=== PATIENT | female | born 1960 | race Caucasian/White ===

== ENCOUNTER 2017-02-28 06:58 | Inpatient (IN) ==
[2017-02-26 17:39] LABS: Appearance,Urine CLEAR; Bilirubin,Urine NEG (NEG); Color,Urine YELLOW; Glucose,Urine (UA) NEGATIVE (NEG); Leukocyte Esterase,Urine NEG /uL (NEG); Nitrate,Urine NEG (NEG); Protein,Urine NEG (NEG); Specific Gravity,Urine 1.013 (1.000-1.035); Urine Blood NEG mg/dL (<0.03); Urobilinogen,Urine NEG (NEG)
[2017-02-26 17:52] LABS: Basophils # (Auto) 0 K/mcL (0.0-0.3); Basophils % (Auto) 0.4 % (0.0-2.0); Eosinophils # (Auto) 0.2 K/mcL (0.0-0.7); Eosinophils % (Auto) 2.3 % (0.0-7.0); Granulocytes % (Auto) 64.3 % (38.0-78.0); Lymphocytes # (Auto) 2.8 K/mcL (1.5-4.8); Lymphocytes % (Auto) 27.7 % (15.5-49.0); Mean Cell Volume 91.8 fL (80.0-100.0); Mean Corpuscular HGB Conc 33.7 g/dL (31.0-36.0); Mean Corpuscular Hemoglobin 30.9 pg (26.0-34.0); Monocytes # (Auto) 0.5 K/mcL (0.1-0.9); Monocytes % (Auto) 5.3 % (1.0-12.0); Platelet Count 224 K/mcL (140-440); RBC 5.21 M/mcL (4.00-5.20); Red Cell Distribution Width 14.9 % (11.5-14.5)
[2017-02-26 17:53] LABS: Blood Urea Nitrogen 23 mg/dl (6-20)
[2017-02-28] MEDS ORDERED: oxyCODONE 10 MG TAB.ER.12H PO SCH (07:00)
[2017-02-28] MEDS ORDERED: PREGABALIN 75 MG CAPSULE PO SCH (07:00)
[2017-02-28] MEDS ORDERED: CELECOXIB 200 MG CAPSULE PO SCH (07:00)
[2017-02-28] MEDS ORDERED: ceFAZolin 1 GM VIAL IV SCH (07:00)
[2017-02-28] MEDS ORDERED: KETOROLAC 30 MG, ROPIVACAINE HCL/PF 49.5 ML, EPINEPHrine 0.5 MG, 0.9 % SODIUM CHLORIDE ... IJ ONE (08:00)
[2017-02-28] MEDS ORDERED: MIDAZOLAM 5 MG/5 ML VIAL IV ONE (09:50)
[2017-02-28] MEDS ORDERED: DEXAMETHASONE 10 MG/ML VIAL IV ONE (09:50)
[2017-02-28] MEDS ORDERED: LIDOCAINE HCL/PF 100 MG/5 ML SYRINGE IV ONE (09:50)
[2017-02-28] MEDS ORDERED: TRANEXAMIC ACID 1,000 MG/10 ML VIAL IV ONE (09:50)
[2017-02-28] MEDS ORDERED: ROPIVACAINE HCL/PF 20 ML VIAL IJ ONE (09:50)
[2017-02-28] MEDS ORDERED: ONDANSETRON 4 MG/2 ML VIAL IV ONE (09:50)
[2017-02-28] MEDS ORDERED: PROPOFOL 200 MG/20 ML VIAL IV ONE (09:50)
[2017-02-28] MEDS ORDERED: TOBRAMYCIN SULFATE 1.2 GM VIAL TOPICAL ONE (10:21)
[2017-02-28] MEDS ORDERED: VANCOMYCIN 500 MG VIAL TOPICAL ONE (10:21)
[2017-02-28] MEDS ORDERED: BENZOCAINE/MENTHOL 1 LOZENGE PO PRN ×2 (11:23→11:50)
[2017-02-28] MEDS ORDERED: fentaNYL 100 MCG/2 ML VIAL IV PRN (11:23)
[2017-02-28] MEDS ORDERED: diphenhydrAMINE 50 MG/ML VIAL IV PRN (11:23)
[2017-02-28] MEDS ORDERED: METHOCARBAMOL 1,000 MG/10 ML VIAL IV PRN (11:23)
[2017-02-28] MEDS ORDERED: LACTATED RINGERS 250 ML IV PRN (11:23)
[2017-02-28] MEDS ORDERED: MEPERIDINE 25 MG/ML SYRINGE IV PRN (11:23)
[2017-02-28] MEDS ORDERED: ONDANSETRON 4 MG/2 ML VIAL IV PRN (11:23)
[2017-02-28] MEDS ORDERED: FLUMAZENIL 0.1 MG/ML ML IV PRN (11:23)
[2017-02-28] MEDS ORDERED: IPRATROPIUM/ALBUTEROL 3 ML AMPUL.NEB NEB PRN (11:23)
[2017-02-28] MEDS ORDERED: HYDROmorphone 2 MG/ML SYRINGE IV PRN ×2 (11:23→11:50)
[2017-02-28] MEDS ORDERED: NALOXONE HCL 0.4 MG/ML VIAL IV PRN (11:23)
[2017-02-28] MEDS ORDERED: PROMETHAZINE 25 MG/ML VIAL IV PRN (11:23)
[2017-02-28] MEDS ORDERED: LACTATED RINGERS 1,000 ML IV SCH (11:30)
[2017-02-28] MEDS ORDERED: ACETAMINOPHEN 325 MG TABLET PO PRN (11:50)
[2017-02-28] MEDS ORDERED: FLEETS ADULT ENEMA PR PRN (11:50)
[2017-02-28] MEDS ORDERED: TRANEXAMIC ACID 1,000 MG/10 ML VIAL IV SCH (11:50)
[2017-02-28] MEDS ORDERED: POLYETHYLENE GLYCOL 3350 17 GM PACKET PO PRN (11:50)
[2017-02-28] MEDS ORDERED: MAGNESIUM HYDROXIDE 30 ML ORAL.SUSP PO PRN (11:50)
[2017-02-28] MEDS ORDERED: BISACODYL 10 MG SUPP.RECT PR PRN (11:50)
--- NOTE | 2017-02-28 11:50 | Brief Operative Note ---
Date of procedure: 02/28/17 Pre-op diagnosis: Left knee severe postinfectious arthritis Post-op diagnosis: same Procedure: Left robotic assisted total knee arthroplasty Grafts/Implants: Yes ([place] triathlon PS 6 femur, 5 tibia, 13 CS insert, 36 patella) Anesthesia: spinal, GLMA Findings: severe arthritis Complications: none Surgeon: Maurisio Mitchell Build And Release Manager: Jewel Polo Estimated blood loss (cc): 15 Specimens Removed/Pathology: none sent Condition: stable Disposition: PACU
[2017-02-28] MEDS: 0.9 % SODIUM CHLORIDE 10 ML SYRINGE IV SCH ×2 (12:30→20:00)
--- NOTE | 2017-02-28 12:51 | XRay Report ---
CLINICAL INFORMATION: Postop total knee prostheses COMPARISON: None. FINDINGS: Total knee prostheses is anatomically aligned. There appear to be antibiotic beads in the patellofemoral and to a lesser extent the tibiofemoral joint. No osseous abnormalities. Soft tissue swelling seen as expected IMPRESSION: Total knee prostheses is anatomically aligned. Interpreted and Authenticated by: Paul Colmenares 02/28/17
--- NOTE | 2017-02-28 14:29 | Operative Note ---
DATE OF OPERATION: 02/28/2017 PREOPERATIVE DIAGNOSIS: Left knee severe post-infectious osteoarthritis. POSTOPERATIVE DIAGNOSIS: Left knee severe post-infectious osteoarthritis. PROCEDURE PERFORMED: Left robotic-assisted total knee arthroplasty using the [place] triathlon posterior stabilized size 6 femoral component, size 5 tibial base plate, a 13 mm total stabilized tibial insert with a 36 mm patellar button. SURGEON: Maurisio Mitchell M.D. SEED BUYER: Rafael Polo PA-C. ANESTHESIA: Spinal plus general. DRAINS: None. SPECIMENS: Bone cuts which were discarded, as well as a culture and sensitivity from the joint. BLOOD LOSS: 15 mL. POSTOPERATIVE CONDITION: Stable. INDICATIONS FOR SURGERY: This is a 56-year-old female who has had a history of septic arthritis of her left knee. She had this surgically treated and had resolved, but she had severe multi-compartment arthrosis as a result. FINDINGS AT SURGERY: No gross purulence, severe arthritis. Post implantation showed good overall limb alignment, patellar tracking, and stability. PROCEDURE IN DETAIL: The patient had been seen preoperatively. Informed consent had been obtained after discussion of risks and benefits of surgery. Risks including, but not limited to, bleeding, possibly requiring transfusion; infection, possibly requiring implant removal and prolonged IV antibiotics; possible above-knee amputation; injury to nerves, blood vessels, and other surrounding structures; anesthetic risks; incomplete or no resolution of symptoms; swelling; stiffness; instability; DVT and pulmonary embolus risks; and the possibility of needing further surgeries. She understood these risks and wished to proceed. Correct operative site was marked in preoperative holding, and the patient was then taken to the operating room after spinal anesthesia was given. General anesthesia was induced and then the left lower extremity was carefully prepped and draped in normal sterile fashion, and a time-out was performed verifying patient name, operative site, and plan. Esmarch was used to exsanguinate the extremity and tourniquet was inflated to 350 mmHg. Her previous incision was used with a scalpel. There was an area of significant scarring where she had had an open wound from her previous surgery, and this was excised and removed. After incising through the skin and subcutaneous tissue, we developed as full thickness flaps as possible, although her skin was very thin. We identified her previous sutures. Rongeur and scalpel were used to remove these. We then irrigated with Irrisept and then made a medial parapatellar arthrotomy. The joint was cultured. There was no gross purulence, however. We then did a subperiosteal exposure of the anterior medial tibia and also the distal anterior cortex of the femur. Anterior horns of the menisci were removed. ACL was transected. Two stab incisions were made over the femur and two over the tibia, and then bicortical pins were placed and the arrays were connected. We then placed our femoral and tibial checkpoint. Hip center of rotation was checked and then medial and lateral malleoli were checked with the green probe. We also did double-checks of our femoral and tibial checkpoint. We then used the blue probe to do our mapping. After this was completed, a rongeur was used to remove osteophytes and then we checked our flexion and extension gaps. Surprisingly, she was tight medially in extension and loose medially in flexion. We were able to get matching flexion-extension gaps laterally at 17 and 17 mm medially in extension. However, flexion we did not feel comfortable internally rotating the implant which would adversely affect her patellar tracking. We then went ahead and used the robotic assistance to make our bone cuts of her femur and tibia. The tibial trial was pinned into place and boss reamer and keel punch used to prepare and then a keeled baseplate trial was placed. Femur was elevated. A curved osteotome was used to remove posterior osteophytes. We then placed our femoral box cut jig and pinned this. We used the saw and then chiseled to make our box cut and then the femur trial was impacted. A 9 insert trial was placed. We were reasonably snug laterally, but again medially in flexion we were gapping open. We did go ahead and prepare the patella. It measured 24 prior to resection. Freehand resection was done and measured 14. We sized this to a 36, which was medialized maximally and then holes were drilled. The patella trial was placed and then a lateral facetectomy performed. We checked our patellar tracking and it tracked well, so we went ahead and removed the trial implants. We had irrigated Irrisept after making our initial joint arthrotomy. We went ahead and reirrigated Irrisept at this point. After waiting a minute, we pulse lavaged. Antibiotics with cement was mixed. We used the CO2 gun to clean the cancellous bone surfaces and then cemented the tibia followed by the femur. A 9 trial insert was placed and then the knee was taken into extension. Excess cement removed. The patellar button was cemented. We then filled the joint with Irrisept and then injected pain cocktail into the pericapsular and subcutaneous tissues. We did also make some antibiotic beads with vancomycin and tobramycin that were absorbable. Once cement had fully hardened, we flexed the knee up. We removed the trial insert. We went up to a size 11 insert. This did improve our flexion stability but still was unstable medially. We went up to then a 13 and this showed more improvement, but there still was some gapping medially, so we chose to open a 13 total stabilized insert. The joint was refilled with Irrisept and then the insert was impacted. The pin was impacted down the center of the post. We then went ahead and did a final pulse lavage with saline. Antibiotic beads were then placed in the gutters and superior pouch. The knee was placed in about 45 degrees of flexion. A #2 FiberWire interrupted [id number] were used around the superior medial quadrant, and #1 Vicryl [id number] around the inferior quadrant. Of note, we did remove our checkpoints prior to closure. A running #1 Vicryl was used for patellar tendon and quad tendon. Final Irrisept irrigation was done, after a minute final pulse lavage, and then 2-0 Monocryl for subcutaneous and deedee for skin. The pins for the femur and tibia had also been removed and Irrisept irrigated and then deedee were used to close these. Xeroform and sterile dressing applied. Tourniquet was released. The patient was awakened, extubated, and transferred to recovery in stable condition. [email or web address] Job ID: [id number] Doc ID: [id number] Maurisio Mitchell MD
[2017-02-28] MEDS: 0.9 % SODIUM CHLORIDE 1,000 ML IV SCH ×2 (14:31→21:39)
[2017-02-28] MEDS: oxyCODONE HCL 5 MG TABLET PO PRN ×4 (15:13→23:56)
[2017-02-28] MEDS: ceFAZolin 1 GM VIAL IV SCH (18:19)
[2017-02-28] MEDS: SENNOSIDES 1 TABLET PO SCH (21:37)
[2017-02-28] MEDS: ASPIRIN 325 MG ENTERIC COATED TABLET PO SCH (21:37)
[2017-02-28] MEDS: DOCUSATE SODIUM 100 MG CAPSULE PO SCH (21:37)
[2017-03-01] MEDS: ceFAZolin 1 GM VIAL IV SCH (01:51)
[2017-03-01] MEDS: oxyCODONE HCL 5 MG TABLET PO PRN ×9 (02:53→21:59)
[2017-03-01] MEDS: 0.9 % SODIUM CHLORIDE 10 ML SYRINGE IV SCH ×3 (06:10→21:30)
[2017-03-01] MEDS: LEVOTHYROXINE 100 MCG TABLET PO SCH (06:58)
--- NOTE | 2017-03-01 07:38 | Discharge Summary ---
Providers - Providers Patient information: Note initiated : 03/01/17 at 7:35 am Service Date, if different from initiated Date: [] Patient: Jumana Prieto 56 y/o F admitted on 02/28/17 for Left Total Knee Arthroplasty Yonatan. Chief Complaint: [] Discharge date: 03/01/17 Hospitalization Hospital course: Pt was admitted for a TkA, she underwent the procedure the day of admission. She was discharged on post-op day 1 with appropriate pain meds, aspirin for DVT prophylaxis and PT orders. She will f/u at [facility] in 10-14 days. Discharge diagnosis: L knee osetoarthrosis Exam - Exam Clean and dry: Yes Weight bearing status: as tolerated Ortho Discharge - TKA - Patient Instructions Diet: Regular Diet Activity: activity as tolerated Total Knee Protocol: For Total Knee: Start ROM LUCIEN with stationary bike or rocking chair. Work on gaining full extension of knee. Posterior dislocation precautions provided. Hip abductor strengthening and gait training instructions provided. Apply Cryocuff as instructed. Dressing Care: May shower in 2 days - Follow Up Plan Disposition: Home, Self-Care Prognosis: Good Rehab Potential: Good Overall status at discharge: patient is progressing back to baseline - Orders For Discharge Prescriptions: Aspirin [Ecotrin] 325 mg PO BID #30 tab.ec HYDROcodone/ACETAMINOPHEN [[place] 10-325 Tablet] 1 - 2 each PO Q4 #90 tab Pending Studies Resuscitation Status Full Code Diet Consistent Carbohydrate Diet Start SunFeb 28 Dinner Aspirin (Ecotrin) 325 mg PO BID PENDING SALE TO [facility] Last Admin: 02/28/17 21:37 Dose: 325 mg Docusate Sodium (Colace) 100 mg PO BID PENDING SALE TO [facility] Last Admin: 02/28/17 21:37 Dose: 100 mg Sodium Chloride (Sodium Chloride 0.9%) 1,000 mls @ 100 mls/hr IV .Q10H PENDING SALE TO [facility] Last Admin: 02/28/17 21:39 Dose: Admin: 02/28/17 14:31 Dose: 100 mls/hr Levothyroxine Sodium (Synthroid) 200 mcg PO QAMAC PENDING SALE TO [facility] Last Admin: 03/01/17 06:58 Dose: 200 mcg Oxycodone HCl (Roxicodone) 0 mg PO Q4HP PRN PRN Reason: Pain Last Admin: 03/01/17 06:57 Dose: 10 mg Admin: 03/01/17 02:53 Dose: 10 mg Admin: 02/28/17 23:56 Dose: 10 mg Admin: 02/28/17 21:37 Dose: 10 mg Admin: 02/28/17 18:19 Dose: 10 mg Admin: 02/28/17 15:13 Dose: 10 mg Senna (Senokot) 2 tab PO HS PENDING SALE TO [facility] Last Admin: 02/28/17 21:37 Dose: 2 tab Sodium Chloride (Saline Flush) 10 ml IV Q8 PENDING SALE TO [facility] Last Admin: 03/01/17 06:10 Dose: 10 ml Admin: 02/28/17 20:00 Dose: 10 ml Admin: 02/28/17 12:30 Dose: Not Given Shift Summary 03/01/17 03:38 Shift Summary by Maggy Wset Doing well. Up with SBA and FWW. [facility] and back. Voiding well in BR. Alert and oriented, pleasant and cooperative but talkative. Medicated with 2-5mg Roxycodone about every 2 hours. Placed on 2L O2 while sleeping. Sats great on RA when awake. Other VSS. JESSICA bandage rewrapped r/t it coming loose while walking. 18G SL to RFA. No complaints of nausea. Calls for needs. Initialized on 03/01/17 03:38 - END OF NOTE
[2017-03-01] MEDS: VITAMIN D3 1,000 UNIT TABLET PO SCH (08:54)
[2017-03-01] MEDS: MULTIVIT,THER IRON,CA,FA & MIN 1 TABLET PO SCH (08:54)
[2017-03-01] MEDS: DOCUSATE SODIUM 100 MG CAPSULE PO SCH ×2 (08:54→20:35)
[2017-03-01] MEDS: ASPIRIN 325 MG ENTERIC COATED TABLET PO SCH ×2 (08:54→20:35)
[2017-03-01] MEDS: 0.9 % SODIUM CHLORIDE 1,000 ML IV SCH ×2 (08:54→19:08)
[2017-03-01] MEDS: SENNOSIDES 1 TABLET PO SCH (20:34)
[2017-03-02] MEDS: oxyCODONE HCL 5 MG TABLET PO PRN ×9 (01:30→21:15)
[2017-03-02] MEDS: 0.9 % SODIUM CHLORIDE 1,000 ML IV SCH ×2 (02:19→16:16)
[2017-03-02] MEDS: 0.9 % SODIUM CHLORIDE 10 ML SYRINGE IV SCH ×3 (06:22→21:16)
[2017-03-02] MEDS ORDERED: ceFAZolin 1 GM VIAL IV ONE (07:42)
--- NOTE | 2017-03-02 07:42 | Orthopedic Progress Note ---
Orthopedics - Auxillary Note - Subjective Patient Information: Note initiated : 03/02/17 at 7:40 am Service Date, if different from initiated Date: [] Patient: Jumana Prieto 56 y/o F admitted on 02/28/17 for Left Total Knee Arthroplasty Yonatan. Chief Complaint: mild to moderate pain nvi-distal insicion is intact but moderate bloody drainage. Vital Signs Temp Pulse Pulse Resp BP BP Pulse Ox 03/02/17 04:00 97.5 F 91 H 16 108/59 95 03/02/17 00:34 98.0 F 79 18 149/72 96 03/01/17 20:00 98.8 F 84 18 153/84 96 03/01/17 17:19 97.6 F 16 159/87 95 03/01/17 13:38 97.4 F 16 150/83 95 03/01/17 07:41 97.2 F 16 156/87 93 Intake and Output 03/01/17 03/02/17 03/02/17 21:59 05:59 13:59 Intake Total 1000 / 1000 400 / 400 Balance 1000 / 1000 400 / 400 Intake: Oral 1000 / 1000 400 / 400 Other: # Voids 1 2 Weight 267 lb 8 oz Laboratory Results - last 24 hr 03/01/17 03/02/17 03/02/17 07:24 04:10 04:10 Hgb 13.0 Hct 38.1 PT 11.8 L 12.8 INR 0.9 0.9 s/p R total knee arthroplasty-stable cont to reinforce dressing. redose Ancef 2g IV now discharge to home today assuming bleeding stops.
[2017-03-02] MEDS: LEVOTHYROXINE 100 MCG TABLET PO SCH (07:43)
[2017-03-02] MEDS: ONDANSETRON 4 MG/2 ML VIAL IV PRN ×2 (08:14→16:35)
[2017-03-02] MEDS: VITAMIN D3 1,000 UNIT TABLET PO SCH (09:25)
[2017-03-02] MEDS: ASPIRIN 325 MG ENTERIC COATED TABLET PO SCH ×2 (09:25→21:16)
[2017-03-02] MEDS: MULTIVIT,THER IRON,CA,FA & MIN 1 TABLET PO SCH (09:25)
[2017-03-02] MEDS: DOCUSATE SODIUM 100 MG CAPSULE PO SCH ×2 (09:25→21:16)
[2017-03-02] MEDS ORDERED: MAG HYDROX/AL HYDROX/SIMETH 30 ML ORAL.SUSP PO PRN (10:01)
[2017-03-02] MEDS ORDERED: CALCIUM CARBONATE 500 MG TAB.CHEW CHEWED PRN (10:01)
--- NOTE | 2017-03-02 13:14 | Orthopedic Progress Note ---
Subjective Patient information: Note initiated : 03/02/17 at 1:12 pm Service Date, if different from initiated Date: [] Patient: Jumana Prieto 56 y/o F admitted on 02/28/17 for Left Total Knee Arthroplasty Yonatan. Chief Complaint: [] Principal diagnosis: s/p L total knee Interval history: incision has been bleeding alot, last changed 7 am today, no bleedthrough yet. Pt very anxious. Objective Vital signs: Vital Signs Temp Pulse Pulse Resp BP BP Pulse Ox 03/02/17 07:58 98.4 F 18 146/54 94 03/02/17 04:00 97.5 F 91 H 16 108/59 95 03/02/17 00:34 98.0 F 79 18 149/72 96 03/01/17 20:00 98.8 F 84 18 153/84 96 03/01/17 17:19 97.6 F 16 159/87 95 03/01/17 13:38 97.4 F 16 150/83 95 Intake and Output 03/01/17 03/02/17 03/02/17 21:59 05:59 13:59 Intake Total 1000 / 1000 400 / 400 800 / 800 Output Total 100 / 100 Balance 1000 / 1000 400 / 400 700 / 700 Intake: Oral 1000 / 1000 400 / 400 800 / 800 Output: Emesis 100 / 100 Other: # Voids 1 2 1 Weight 267 lb 8 oz Intake & Output: Intake & Output 03/01/17 03/02/17 03/02/17 21:59 05:59 13:59 Intake Total 1000 / 1000 400 / 400 800 / 800 Output Total 100 / 100 Balance 1000 / 1000 400 / 400 700 / 700 Weight 267 lb 8 oz Intake: Oral 1000 / 1000 400 / 400 800 / 800 Output: Emesis 100 / 100 Other: # Voids 1 2 1 Dressing: Yes clean, Yes dry, Yes intact Extremities exam IM: Yes neurovascular intact - Labs CBC & BMP: 03/02/17 04:10 02/26/17 14:19 Labs: Orthopedic Labs 03/02/17 03/01/17 03/01/17 04:10 07:24 05:00 PT 12.8 11.8 L TNP INR 0.9 0.9 TNP 02/26/17 14:19 PT 13.0 INR 1.0 03/02/17 03/01/17 02/26/17 04:10 05:00 14:19 Hgb 13.0 12.9 16.1 H Hct 38.1 38.3 47.9 Assessment and Plan (1) S/P total knee arthroplasty POD#1-stable, bleeding not unexpected, appears to have slowed up now. -will keep overnight to observe for more bleeding -will d/c tomorrow if doing well Status: Acute
[2017-03-02] MEDS: SENNOSIDES 1 TABLET PO SCH (21:15)
[2017-03-03] MEDS: oxyCODONE HCL 5 MG TABLET PO PRN ×3 (01:13→10:00)
[2017-03-03] MEDS: 0.9 % SODIUM CHLORIDE 10 ML SYRINGE IV SCH (05:52)
[2017-03-03] MEDS: LEVOTHYROXINE 100 MCG TABLET PO SCH (09:09)
[2017-03-03] MEDS: ASPIRIN 325 MG ENTERIC COATED TABLET PO SCH (09:09)
[2017-03-03] MEDS: DOCUSATE SODIUM 100 MG CAPSULE PO SCH (09:09)
[2017-03-03] MEDS: VITAMIN D3 1,000 UNIT TABLET PO SCH (09:09)
[2017-03-03] MEDS: MULTIVIT,THER IRON,CA,FA & MIN 1 TABLET PO SCH (09:09)
== END 2017-03-03 10:15 | disposition home or self-care (01) | DRG 470 ==
LOC: MEDSUR 06:58
PROVIDERS: ADMIT Orthopaedic Surgery; ATTEND Orthopaedic Surgery

== ENCOUNTER 2018-11-07 08:24 | Inpatient (IN) ==
[2018-10-28 12:04] LABS: Appearance,Urine CLEAR; Bacteria,Urine 0 /hpf (0); Bilirubin,Urine NEG (NEG); Color,Urine YELLOW; Culture Indicated,Urine NO; Glucose,Urine (UA) NEGATIVE (NEG); Ketones,Urine NEG (NEG); Leukocyte Esterase,Urine NEG /uL (NEG); Nitrate,Urine NEG (NEG); Protein,Urine NEG (NEG); Specific Gravity,Urine 1.015 (1.000-1.035); Urine Blood 0.03 mg/dL (<0.03); Urine RBC 2 /hpf (0-1); Urine Squamous Epithelial Cell 2 /hpf (0-4); Urine Transitional Epi Cells < 1 /hpf (0-2); Urine WBC 2 /hpf (0-4); Urobilinogen,Urine NEG (NEG)
[2018-10-28 12:34] LABS: Basophils # (Auto) 0 K/mcL (0.0-0.3); Basophils % (Auto) 0.4 % (0.0-2.0); Eosinophils # (Auto) 0.1 K/mcL (0.0-0.7); Eosinophils % (Auto) 1.8 % (0.0-7.0); Granulocytes % (Auto) 66.9 % (38.0-78.0); Hematocrit 46.8 % (36.0-48.0); Hemoglobin 15.2 g/dL (12.0-15.0); Lymphocytes % (Auto) 24.9 % (15.5-49.0); Mean Cell Volume 89.1 fL (80.0-100.0); Mean Corpuscular HGB Conc 32.5 g/dL (31.0-36.0); Mean Platelet Volume 10.5 fL (7.4-10.4); Monocytes # (Auto) 0.5 K/mcL (0.1-0.9); Platelet Count 197 K/mcL (140-440); RBC 5.26 M/mcL (4.00-5.20); Red Cell Distribution Width 14.8 % (11.5-14.5); WBC 8.2 K/mcL (4.5-11.0)
[2018-10-28 12:47] LABS: Blood Urea Nitrogen 15 mg/dl (6-20); Calcium 9.1 mg/dl (8.6-10.4); Carbon Dioxide 24 mmol/L (22-30); Chloride 103 mmol/L (96-108); Glomerular Filtration Rate 80; Glucose 91 mg/dL (70-105); Potassium 4.1 mmol/L (3.3-5.1); Sodium 141 mmol/L (133-145)
[~2018-11-07 08:24] MED LIST: 0.9 % SODIUM CHLORIDE 9 ML, KETOROLAC 30 MG, ROPIVACAINE HCL/PF 49.5 ML, EPINEPHrine 0.... IJ SCH; IPRATROPIUM/ALBUTEROL 3 ML AMPUL.NEB NEB PRN; SCOPOLAMINE 1 PATCH PATCH TOPICAL ONE; ceFAZolin 3 GM in DEXTROSE 5% IN WATER 50 ML IV SCH
[2018-11-07] MEDS ORDERED: GENTAMICIN SULFATE 800 MG/20 ML VIAL IR ONE (12:12)
[2018-11-07] MEDS ORDERED: PROPOFOL 200 MG/20 ML VIAL IV ONE (12:51)
[2018-11-07] MEDS ORDERED: ROPIVACAINE HCL/PF 20 ML VIAL IJ ONE (12:51)
[2018-11-07] MEDS ORDERED: DEXAMETHASONE 10 MG/ML VIAL IV ONE (12:51)
[2018-11-07] MEDS ORDERED: fentaNYL 250 MCG/5 ML VIAL IV ONE (12:51)
[2018-11-07] MEDS ORDERED: TRANEXAMIC ACID 1,000 MG/10 ML VIAL IV ONE (12:51)
[2018-11-07] MEDS ORDERED: ePHEDrine 50 MG/ML AMPUL IV ONE (12:51)
[2018-11-07] MEDS ORDERED: LIDOCAINE HCL/PF 100 MG/5 ML SYRINGE IV ONE (12:51)
[2018-11-07] MEDS ORDERED: MIDAZOLAM 5 MG/5 ML VIAL IV ONE (12:51)
[2018-11-07] MEDS ORDERED: ONDANSETRON 4 MG/2 ML VIAL IV ONE (12:51)
[2018-11-07] MEDS ORDERED: ONDANSETRON 4 MG/2 ML VIAL IV PRN ×2 (14:20→15:33)
[2018-11-07] MEDS ORDERED: ACETAMINOPHEN 1,000 MG/100 ML BOTTLE IV ONE (14:20)
[2018-11-07] MEDS ORDERED: FLUMAZENIL 0.1 MG/ML ML IV PRN (14:20)
[2018-11-07] MEDS ORDERED: BENZOCAINE/MENTHOL 1 LOZENGE PO PRN ×2 (14:20→15:33)
[2018-11-07] MEDS ORDERED: PROMETHAZINE 25 MG/ML VIAL IV PRN (14:20)
[2018-11-07] MEDS ORDERED: diphenhydrAMINE 50 MG/ML VIAL IV PRN (14:20)
[2018-11-07] MEDS ORDERED: LACTATED RINGERS 250 ML IV PRN (14:20)
[2018-11-07] MEDS ORDERED: MEPERIDINE 25 MG/ML SYRINGE IV PRN (14:20)
[2018-11-07] MEDS ORDERED: NALOXONE HCL 0.4 MG/ML VIAL IV PRN (14:20)
[2018-11-07] MEDS ORDERED: fentaNYL 100 MCG/2 ML VIAL IV PRN (14:20)
[2018-11-07] MEDS ORDERED: IPRATROPIUM/ALBUTEROL 3 ML AMPUL.NEB NEB PRN (14:20)
[2018-11-07] MEDS ORDERED: LACTATED RINGERS 1,000 ML IV SCH (14:30)
[2018-11-07] MEDS ORDERED: TRANEXAMIC ACID 1,000 MG/10 ML VIAL IV SCH (15:33)
[2018-11-07] MEDS ORDERED: POLYETHYLENE GLYCOL 3350 17 GM PACKET PO PRN (15:33)
[2018-11-07] MEDS ORDERED: BISACODYL 10 MG SUPP.RECT PR PRN (15:33)
[2018-11-07] MEDS ORDERED: METHOCARBAMOL 1,000 MG/10 ML VIAL IV PRN (15:33)
[2018-11-07] MEDS ORDERED: FLEETS ADULT ENEMA PR PRN (15:33)
[2018-11-07] MEDS ORDERED: MAGNESIUM HYDROXIDE 30 ML ORAL.SUSP PO PRN (15:33)
--- NOTE | 2018-11-07 15:40 | Brief Operative Note ---
Date of procedure: 11/07/18 Pre-op diagnosis: unstable r knee prosthesis Post-op diagnosis: same Procedure: revision tibial component and polyethylene Grafts/Implants: Yes (revision 5 baseplate with 10 mm augment, 11 mm CR poly) Anesthesia: GETA Complications: none Surgeon: Brian Saunders Marine Meteorologist: Foster Kay Estimated blood loss (cc): 250 Tourniquet Time (Minutes): 105 Specimens Removed/Pathology: other (tibial bone bx; synocial cx and bone culture) Condition: stable Disposition: PACU
[2018-11-07] MEDS: 0.9 % SODIUM CHLORIDE 1,000 ML IV SCH (16:52)
--- NOTE | 2018-11-07 17:16 | XRay Report ---
CLINICAL INFORMATION: Post-op total knee. COMPARISON: None. FINDINGS: Total knee prostheses is anatomically aligned. No osseous abnormality. Soft tissue swelling seen as expected IMPRESSION: Negative Interpreted and Authenticated by: Paul Colmenares 11/07/18
[2018-11-07] MEDS: HYDROcodone/APAP 10/325MG TABLET PO PRN ×2 (20:00→21:13)
[2018-11-07] MEDS: DOCUSATE SODIUM 100 MG CAPSULE PO SCH (20:45)
[2018-11-07] MEDS: ASPIRIN 81 MG TAB.CHEW PO SCH (20:45)
[2018-11-07] MEDS: ceFAZolin 1 GM VIAL IV SCH (20:46)
[2018-11-07] MEDS ORDERED: SENNOSIDES 1 TABLET PO SCH (21:00)
[2018-11-07] MEDS: 0.9 % SODIUM CHLORIDE 10 ML SYRINGE IV SCH (22:51)
[2018-11-08] MEDS: HYDROcodone/APAP 10/325MG TABLET PO PRN ×3 (03:33→11:22)
[2018-11-08] MEDS: ceFAZolin 1 GM VIAL IV SCH (03:34)
[2018-11-08 05:26] LABS: Hemoglobin 12.7 g/dL (12.0-15.0)
[2018-11-08] MEDS: 0.9 % SODIUM CHLORIDE 1,000 ML IV SCH (05:36)
[2018-11-08] MEDS: 0.9 % SODIUM CHLORIDE 10 ML SYRINGE IV SCH (06:52)
[2018-11-08] MEDS ORDERED: LEVOTHYROXINE 75 MCG TABLET PO SCH (07:30)
[2018-11-08] MEDS: DOCUSATE SODIUM 100 MG CAPSULE PO SCH (07:49)
[2018-11-08] MEDS: ASPIRIN 81 MG TAB.CHEW PO SCH (07:49)
--- NOTE | 2018-11-08 08:27 | Operative Note ---
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 OPERATION: Revision tibial component. SURGEON: Brian Saunders MD APPRAISAL SPECIALIST: Foster Kay PA-C. The PA's assistance was required for the safe and efficient completion of the entire case. This provider's expertise and technical skill were required throughout the case. The PA assisted with preoperative coordination, intraoperative retraction, wound closure, dressing and splint application, as well as postoperative documentation and care coordination. ANESTHESIA: General. TOURNIQUET TIME: 105 minutes. ESTIMATED BLOOD LOSS: 250 mL SUMMARY OF PROCEDURE: General anesthesia was attained. The right leg was prepped and draped. A midline incision was reopened from the quadriceps to the tibial tubercle. This was taken down sharply with full thickness flaps developed. The previous approach to the quadriceps was identifiable and this was reopened. There was a patella baja. The soft tissue was released in the anteromedial aspect of the tibia. There was hudson instability, especially with varus stressing as well as with the anterior drawer. The tibial insert was removed. This was 9 mm thick. I then meticulously dissected around the cement mantle of the tibial metal components and ultimately this freed up the component and this was removed with an impactor. The cement was removed throughout. The intramedullary guide was used to a size 20 and the proximal cutting guide placed. The cut was made 2 mm below the stylus measurement using the guide system. We then sized the tibia. I used the reamers to get a good fit about 12 to 14 cm distal to the joint line and this ended up being a 20 mm reamer. The counter bore was used. Sizing and location of the tibial tray required an offset and this was adjusted using a 2 mm offset to maximize coverage. I used a 10 mm buildup on the tibia. The patellar component was inspected and looked undamaged and was not loose. The femoral component likewise looked undamaged and not loose. This was not an Oxinium components and was from the Gen II system, it appeared. We then did a trialing and got the best combination of stability with the 10 mm buildup under the tibial component and then a size 11 component, which was posterior stabilized. The bone was copiously irrigated. The stem component was next cemented in. The component was left to harden with the knee in full extension. The cementing technique was using a gun and Simplex cement with gentamicin. Excess cement was removed. The no-touch test showed there was some instability of the extensor mechanism laterally and some moderate tearing distal medially. We did a formal lateral release which restored the tracking of the patella and reinforced the anterior and medial patellar tendon using a suture anchor technique. The knots were buried in the second hole which was a SwiveLock. The tourniquet was let down. All bleeding points were coagulated. The extensor mechanism and VMO were reapproximated using buried #2 FiberWires. The proximal quadriceps was closed with a running 2-0 Stratafix. The subcutaneous tissue was closed with buried 2-0 Monocryl and the skin was closed with deedee. During the procedure, the knee was injected throughout with a total of 100 mL of a multimodal solution for postoperative analgesia. A sterile compressive dressing was applied. The sponge and needle count was correct. The patient tolerated the procedure well and was taken to the recovery room in stable condition. [email or web address] Job ID: [id number] Doc ID: [id number] Brian Saunders MD
[2018-11-08] MEDS ORDERED: MULTIVIT,THER IRON,CA,FA & MIN 1 TABLET PO SCH (09:00)
[2018-11-08] MEDS ORDERED: VITAMIN D3 1,000 UNIT TABLET PO SCH (09:00)
--- NOTE | 2018-11-08 11:11 | Discharge Summary ---
Ortho Discharge - TKA - Patient Instructions Diet: Regular Diet Total Knee Protocol: For Total Knee: Start ROM LUCIEN with stationary bike or rocking chair. Work on gaining full extension of knee. Posterior dislocation precautions provided. Hip abductor strengthening and gait training instructions provided. Apply Cryocuff as instructed. Additional Instructions: Discharge Instructions: Do the exercises at home that physical therapy gave you. Weight bearing as tolerated, wear brace when up out of bed and when in bed for comfort until follow up appointment with Dr Saunders. Take your prescription, photo ID, insurance cards, and current medication list with you to your first physical therapy appointment. 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 If you have the Aquacel Ag dressing, leave in place for 7 days then remove. If dressing becomes soiled (turns black), remove and use gauze 4x4 dressing and silvasorb ointment and change daily. You may shower with dressing on, pat dry after shower. If you have Dermabond (a dressing with a mesh-like appearance), DO NOT remove mesh. Cover site daily with gauze dressing. You may start showering on post op day #2. The Dermabond dressing can get wet, do not scrub dressing. Pat dry, then place new dry gauze and rewrap with JESSICA dressing. To avoid constipation while taking any narcotic pain medication, take an over the counter stool softener/laxative. Use your Cryocuff or ice packs as directed, on for 20 minutes at a time throughout the day. This and elevation will help with pain and swelling. Call your physician for fevers above 100.5 or pain not controlled by medication. Your prescriptions are with your discharge information. Some medications were electronically transmitted to your pharmacy of choice. Take Aspirin as prescribed to prevent blood clots (see medication list). - Problem Maintenance (1) Total knee replacement status Status: Acute Qualifiers: Laterality: right Qualified Code(s): Z96.651 - Presence of right artificial knee joint (2) Loose total knee arthroplasty Status: Acute Comment: needs brace Qualifiers: Encounter type: subsequent encounter Laterality: right Qualified Code(s): T84.032D - Mechanical loosening of internal right knee prosthetic joint, subs equent encounter - Follow Up Plan Follow Up Appointments: Brian Saunders MD [Physician] - Disposition: Home, Self-Care Prognosis: Good Rehab Potential: Good I certify that the patient requires SNF services: No - Orders For Discharge Prescriptions: HYDROcodone/APAP 10/325MG [[place] 10-325Mg] 1 tab PO Q4HP PRN #50 tab PRN Reason: Pain Level 3-6
--- NOTE | 2018-11-08 11:13 | Discharge Summary ---
Providers - Providers Patient information: Note initiated : 11/08/18 at 11:11 am Service Date, if different from initiated Date: [] Patient: Jumana Prieto 58 y/o F admitted on 11/07/18 for Right Total Knee Arthroplasty Revision . Chief Complaint: [] Date of admission: 11/07/18 Discharge date: 11/08/18 Attending physician: Brian Saunders Hospitalization Hospital course: revision of loose total knee replacement right Discharge diagnosis: loose total knee prosthesis Procedures: revision knee replacement Exam - Exam Clean and dry: Yes Weight bearing status: full Range of motion: 5 qctive df ankle and slr Ortho Discharge - TKA - Patient Instructions Diet: Regular Diet Activity: ambulate with assistive device Total Knee Protocol: For Total Knee: Start ROM LUCIEN with stationary bike or rocking chair. Work on gaining full extension of knee. Posterior dislocation precautions provided. Hip abductor strengthening and gait training instructions provided. Apply Cryocuff as instructed. Additional Instructions: Discharge Instructions: Do the exercises at home that physical therapy gave you. Weight bearing as tolerated, wear brace when up out of bed and when in bed for comfort until follow up appointment with Dr Saunders. Take your prescription, photo ID, insurance cards, and current medication list with you to your first physical therapy appointment. Take your prescription to pickup driver any medication or equipment (such as walker, crutches, toilet riser or C.P.M.) Wear comfortable clothing for your physical therapy. If you have the Aquacel Ag dressing, leave in place for 7 days then remove. If dressing becomes soiled (turns black), remove and use gauze 4x4 dressing and silvasorb ointment and change daily. You may shower with dressing on, pat dry after shower. If you have Dermabond (a dressing with a mesh-like appearance), DO NOT remove mesh. Cover site daily with gauze dressing. You may start showering on post op day #2. The Dermabond dressing can get wet, do not scrub dressing. Pat dry, then place new dry gauze and rewrap with JESSICA dressing. To avoid constipation while taking any narcotic pain medication, take an over the counter stool softener/laxative. Use your Cryocuff or ice packs as directed, on for 20 minutes at a time throughout the day. This and elevation will help with pain and swelling. Call your physician for fevers above 100.5 or pain not controlled by medication. Your prescriptions are with your discharge information. Some medications were electronically transmitted to your pharmacy of choice. Take Aspirin as prescribed to prevent blood clots (see medication list). - Problem Maintenance (1) Total knee replacement status Status: Acute Qualifiers: Laterality: right Qualified Code(s): Z96.651 - Presence of right artificial knee joint (2) Loose total knee arthroplasty Status: Acute Comment: needs brace Qualifiers: Encounter type: subsequent encounter Laterality: right Qualified Code(s): T84.032D - Mechanical loosening of internal right knee prosthetic joint, subsequent encounter - Follow Up Plan Follow Up Appointments: Brian Saunders MD [Physician] - Disposition: Home, Self-Care Prognosis: Good Rehab Potential: Good I certify that the patient requires SNF services: No - Orders For Discharge Prescriptions: HYDROcodone/APAP 10/325MG [Calhoun 10-325Mg] 1 tab PO Q4HP PRN #50 tab PRN Reason: Pain Level 3-6 Pending Studies Resuscitation Status Full Code Diet Regular Diet Start SunNov 07 1650 Hydrocodone Bitart/Acetaminophen (Calhoun 10/325mg) 0 tab PO Q4HP PRN PRN Reason: PAIN LEVEL 3-6 Last Admin: 11/08/18 07:49 Dose: 2 tab Documented by: Admin: 11/08/18 03:33 Dose: 2 tab Documented by: Admin: 11/07/18 21:13 Dose: 1 tab Documented by: Admin: 11/07/18 20:00 Dose: 1 tab Documented by: KARRIE Aspirin (Aspirin) 81 mg PO BID [facility] Last Admin: 11/08/18 07:49 Dose: 81 mg Documented by: Admin: 11/07/18 20:45 Dose: 81 mg Documented by: KARRIE Docusate Sodium (Colace) 100 mg PO BID [facility] Last Admin: 11/08/18 07:49 Dose: 100 mg Documented by: Admin: 11/07/18 20:45 Dose: 100 mg Documented by: KARRIE Sodium Chloride (Sodium Chloride 0.9%) 1,000 mls @ 75 mls/hr IV .[id number] [facility] Last Admin: 11/08/18 05:36 Dose: Not Given Documented by: Infusion: 11/08/18 03:33 Dose: 0 mls/hr Documented by: Admin: 11/07/18 16:52 Dose: 75 mls/hr Documented by: YOVANI Iron Carb/Multivit/Russell/Folic Acid (Multivitamin W/Minerals) 1 tab PO DAILY [facility] Last Admin: 11/08/18 07:49 Dose: 1 tab Documented by: MGARRIGNACIA Levothyroxine Sodium (Synthroid) 150 mcg PO QAMAC [facility] Last Admin: 11/08/18 06:52 Dose: 150 mcg Documented by: MGARRED Methocarbamol (Robaxin) 750 mg IV Q6HP PRN PRN Reason: Muscle Spasm Last Admin: 11/08/18 06:52 Dose: 750 mg Documented by: MGARRIGNACIA Morphine Sulfate (Morphine) 0 mg IV Q1HP PRN PRN Reason: PAIN LEVEL > 6 Last Admin: 11/07/18 23:59 Dose: 2 mg Documented by: Admin: 11/07/18 17:18 Dose: 4 mg Documented by: YOVANI Ondansetron HCl (Zofran) 4 mg IV Q4HP PRN PRN Reason: Nausea And Vomiting Last Admin: 11/08/18 09:31 Dose: 4 mg Documented by: YOVANI Senna (Senokot) 2 tab PO HS [facility] Last Admin: 11/07/18 20:46 Dose: 2 tab Documented by: KARRIE Sodium Chloride (Saline Flush) 10 ml IV Q8 [facility] Last Admin: 11/08/18 06:52 Dose: 10 ml Documented by: Admin: 11/07/18 22:51 Dose: Not Given Documented by: KARRIE Vitamin D (Vitamin D3) 1,000 unit PO DAILY [facility] Last Admin: 11/08/18 07:49 Dose: 1,000 unit Documented by: HALEIGH Shift Summary 11/08/18 05:21 Shift Summary by Slime Brown Pt is A&O x4, pleasant & cooperative. VSS on RA. Up with SBA, FWW & GB. IV to left wrist, saline-locked. Dressing to right knee has a very small amount of drainage. Pt also came back from surgery with a brace in place on her right leg. Pt has ambulated to and from the bathroom a few times, but has not yet ambulated in the hallway as she was stating her "leg felt like a stump" due to the numbness. Pt still has some numbness to right knee and ankle, but has improved since last night. Voiding well. Last PVR was ~66cc. Pt receive Calhoun 10 mg (1 tab) x2, (2 tabs) x1, and Morphine 2mg x1 for pain. Has scopolamine patch behind left ear. Denies nausea and tolerating PO intake. Will update with verbal report. Initialized on 11/08/18 05:21 - END OF NOTE
--- NOTE | 2018-11-08 14:09 | Surgical Pathology Report ---
HISTOLOGY SPECIMEN MICROSCOPIC DIAGNOSIS BONE, RIGHT TIBIA, BIOPSY: -- FRAGMENTS OF LAMELLAR BONE WITH METALLOSIS, FOREIGN BODY GIANT CELL REACTION AND MILD CHRONIC INFLAMMATION. -- NO ACTIVE OSTEOMYELITIS IDENTIFIED. -- NO MALIGNANCY IDENTIFIED. (EBD:sln) CLINICAL HISTORY Tibial revision post total knee. GROSS DESCRIPTION Received in formalin labeled right tibia bone biopsy, is a 1.4 x 0.7 x 0.3 cm tsai segment of possible bone. Entirely submitted in one cassette following light decalcification. (SCB:adj) Electronically Signed by: Patti Raya M.D.
== END 2018-11-08 12:04 | disposition home or self-care (01) | DRG 468 ==
LOC: MEDSUR 08:24
PROVIDERS: ADMIT Orthopaedic Surgery Foot and Ankle Surgery; ATTEND Orthopaedic Surgery Foot and Ankle Surgery

== ENCOUNTER 2021-08-15 19:48 | Observation (INO) ==
[2021-08-15] MEDS ORDERED: ACETAMINOPHEN 325 MG TABLET PO ONE (20:26)
[2021-08-15] MEDS ORDERED: KETOROLAC 30 MG/ML VIAL IV ONE (20:36)
[2021-08-15] MEDS ORDERED: HYDROmorphone 0.5 MG/0.5 ML SYRINGE IV ONE (20:36)
[2021-08-15] MEDS ORDERED: ONDANSETRON 4 MG/2 ML VIAL IV ONE (20:36)
--- NOTE | 2021-08-15 20:36 | Emergency Department Note ---
Female Urogenital HPI General Chief complaint: Flank Pain Stated complaint: I think I have a kidney stone Time Seen by Provider: 08/15/21 20:23 Source: patient Mode of arrival: ambulatory Limitations: no limitations History of Present Illness HPI Narrative: 61-year-old female patient presents for 2 weeks of worsening right flank pain and right upper quadrant pain. Pain became worse yesterday and this morning she started having nausea and vomiting. She took some ibuprofen early this morning. She has been endorsing some fevers and chills with lower temperatures of 100 Fahrenheit. Upon presentation today she is 100.9 Fahrenheit. She endorses frequent urination yesterday. Denies hematuria or dysuria. Denies history of kidney stones. No previous abdominal surgeries. Having normal bowel movements with last bowel movement 2 days ago. No melena or hematochezia. No GERD symptoms. Related Data Home Medications Medication Instructions Recorded Confirmed cholecalciferol (vitamin D3) 25 1,000 unit PO DAILY 02/26/17 09/09/19 mcg (1,000 unit) tablet (Vitamin D3) levothyroxine 100 mcg tablet 150 mcg PO QAMAC 02/26/17 08/15/21 multivitamin-iron 9 mg-folic acid 1 tab PO DAILY 02/26/17 09/09/19 400 mcg-calcium and minerals tablet Previous Rx's Medication Instructions Recorded oxybutynin chloride 5 mg tablet 5 mg PO BID-TID PRN #30 tab 07/18/19 Allergies Allergy/AdvReac Type Severity Reaction Status Date / Time NSAIDS (Non-Steroidal AdvReac Mild Diarrhea Verified 08/15/21 19:54 Anti-Inflamma Review of Systems ROS ROS Narrative: Narrative: All systems ED: reviewed and negative except as stated. PFSH Narrative Patient History Narrative: Narrative: Medical/Surgical/Family History All Active Problems Osteoarthritis (Chronic) Bone spur of right foot (Chronic) Headache (Chronic) Pseudogout of left knee (Chronic) PUD (peptic ulcer disease) (Chronic) Obesity (Chronic) Hypertension (Chronic) Alcohol abuse (Chronic) Pancreatitis (Chronic) Leukocytosis (Chronic) Septic shock (Chronic ~2015) Sepsis (Chronic) Intractable nausea and vomiting (Chronic) Ureterolithiasis (Chronic) Right flank pain (Chronic) UTI (urinary tract infection) (Chronic) Hydronephrosis (Chronic) Hypothyroidism (Chronic) Kidney stones (Chronic) S/P total knee arthroplasty (Acute) Total knee replacement status (Acute) Loose total knee arthroplasty (Acute) Medical History Alcohol abuse no alcohol since 04/2013 Bone spur of right foot Headache Hydronephrosis Hypertension requiring medication management while an alcoholic Hypothyroidism Intractable nausea and vomiting Kidney stones Leukocytosis Obesity Osteoarthritis Pancreatitis alcohol related Pseudogout of left knee PUD (peptic ulcer disease) secondary to aspirin misuse Right flank pain Sepsis Septic shock (~2014) Ureterolithiasis UTI (urinary tract infection) Surgical History History of hysterectomy History of left knee surgery for septic joint History of nephrolithotomy with removal of calculi (~05/27/19) History of right knee surgery History of skin graft over knee History of ureter stent x2; 05/03/2019 Family History Other No pertinent past medical history Social History Smoking Status: Current every day smoker Alcohol Intake Frequency: former alcohol drinker Substance Use: does not use Exam Narrative Narrative: General: AOx3, painful appearing and fidgety. Pleasant and conversant. HEENT: PERRL, EOMI, normocephalic. Moist mucous membranes. Normal facies and normal dentition. Respiratory: Lungs clear to auscultation bilaterally. No respiratory distress. Unlabored breathing. Heart: Tachycardic rate and regular, no murmurs/clicks/rubs. Abdomen: Right upper quadrant tenderness. Non distended bowel sounds auscultated secondary to body habitus. No organomegaly. Back: She has significant right flank pain with palpation. Extremities: Warm and well perfused. No edema. DP 2+ bilaterally. No venous stasis. Neuro: No focal deficits. Cranial nerves II-XII grossly normal. Skin: Warm dry, no rashes or lesions, no cyanosis. Psych: Normal mood and affect Heme/Lymph: No abnormal bruising General Limitations: no limitations Course Course Course Narrative: 61-year-old female presents for 2 weeks of worsening right flank pain radiating to her right upper quadrant and groin with low-grade temperatures and some nausea and vomiting Reevaluation(s) Reevaluation #1: Basic labs, establish IV and give IV fluids Urinalysis and culture IV Dilaudid, Toradol, Zofran Bilateral renal ultrasound Reevaluation #2: Urine dip shows moderate blood and high leukocyte esterase. This been sent for urinalysis Vital Signs Vital signs: Vital Signs Temperature 100.9 F H 08/15/21 19:50 Pulse Rate 102 H 08/15/21 19:50 Respiratory Rate 18 08/15/21 19:50 Blood Pressure 151/86 08/15/21 19:50 Pulse Oximetry (%) 91 08/15/21 19:50 Temperature 100.9 F H 08/15/21 19:50 Pulse Rate 102 H 08/15/21 19:50 Respiratory Rate 18 08/15/21 19:50 Blood Pressure 151/86 08/15/21 19:50 Pulse Oximetry (%) 91 08/15/21 19:50 MDM MDM Narrative Medical decision making narrative: Right flank pain Patient is currently being worked up for kidney stone. Renal ultrasound is pending. I have signed the patient out to Dr. Greene at change of shift. Please see his note for further details and plan of care. Lab Data Labs: Lab Results 08/15/21 Range/Units 20:39 POC Hct 47.0 (36-48) POC Sodium 137 (133-145) POC Potassium 4.0 (3.3-5.1) POC Chloride 102 (96-108) POC Total CO2 24.0 (22-30) POC BUN 20 (6-20) POC Creatinine 1.2 (0.6-1.2) POC Glucose 113 H (70-105) POC WB Ioniz Calcium 1.12 L (1.16-1.32) Discharge Plan Patient/Caregiver Discharge Instructions Pt seen by SURETY BOND AGENT/PA only: No (Dr. Greene) Patient Disposition: Still a Patient Condition: Undetermined Prescriptions: No Action oxybutynin chloride 5 mg tablet 5 mg PO BID-TID PRN (Reason: bladder cramps) Qty: 30 2RF levothyroxine 100 MCG tablet 150 mcg PO QAMAC 0RF cholecalciferol (vitamin D3) [Vitamin D3] 1,000 UNIT tablet 1,000 unit PO DAILY 0RF [id number]-mins 1 TAB tablet 1 tab PO DAILY 0RF
[2021-08-15 20:42] LABS: POC Calcium, Ionized 1.12 (1.16-1.32); POC Creatinine 1.2 (0.6-1.2)
[2021-08-15] MEDS ORDERED: 0.9 % SODIUM CHLORIDE 1,000 ML IV ONE (20:51)
--- NOTE | 2021-08-15 21:06 | Emergency Department Note ---
Course Consultations Consultation #1: Dr. Glaser, urology Time: 23:30 Vital Signs Vital signs: Vital Signs Temperature 100.9 F H 08/15/21 19:50 Pulse Rate 102 H 08/15/21 19:50 Respiratory Rate 18 08/15/21 19:50 Blood Pressure 151/86 08/15/21 19:50 Pulse Oximetry (%) 91 08/15/21 19:50 Temperature 98.2 F 08/16/21 00:00 Pulse Rate 79 08/16/21 00:17 Respiratory Rate 18 08/15/21 19:50 Blood Pressure 143/93 08/16/21 00:17 Pulse Oximetry (%) 93 08/16/21 00:17 MDM MDM Narrative Medical decision making narrative: Patient received in signout from JILLIAN Mayfield. Worsening right flank pain and chills at home. Febrile to 100.9F here. Labs notable for leukocytosis of 13.8. Lactate is normal. Creatinine is 1.2. Normal saline bolus, pain control, and antiemetics given. Renal ultrasound shows right hydronephrosis with stones in the right kidney. CT abdomen obtained which shows right intrarenal stones and multiple mid right ureteral stones. UA is leukoesterase positive but nitrite negative and there is no bacteria. I spoke with Dr. Glaser of urology who will admit the patient tonight for procedure in the morning. He does not recommend antibiotics at this time. Admission orders placed. Patient made n.p.o. Maintenance IV fluids, as well as PRN pain control and antiemetics were ordered. Patient updated with results and plan. Patient transported to the floor. Lab Data Lab results reviewed: Yes I reviewed the patient's lab results. Result diagrams: 08/15/21 20:40 Labs: Lab Results 08/15/21 08/15/21 08/15/21 Range/Units 20:28 20:39 20:40 WBC 13.8 H (4.5-11.0) K/mcL RBC 4.93 (3.59-5.38) M/mcL Hgb 15.2 (11.2-15.7) g/dL Hct 46.1 H (34.1-44.9) % POC Hct 47.0 (36-48) MCV 93.5 (80.0-100.0) fL MCH 30.8 (26.0-34.0) pg MCHC 33.0 (31.0-36.0) g/dL RDW 13.7 (11.5-14.5) % Plt Count 195 (140-440) K/mcL MPV 12.2 H (7.4-10.4) fL Seg Neutrophils % 78 (38-78) % Band Neutrophils % 3 (0-10) % Lymphocytes % 13 L (15-49) % Monocytes % (Manual) 5 (1-12) % Eosinophils % (Manual) 1 (0-7) % Platelet Estimate Normal (Normal) RBC Morphology Normal (Normal) VBG Lactic Acid (0.5-2.0) mmol/L POC Sodium 137 (133-145) POC Potassium 4.0 (3.3-5.1) POC Chloride 102 (96-108) POC Total CO2 24.0 (22-30) POC BUN 20 (6-20) POC Creatinine 1.2 (0.6-1.2) POC Glucose 113 H (70-105) POC WB Ioniz Calcium 1.12 L (1.16-1.32) Urine Color Yellow Urine Appearance Hazy A (Clear) Urine pH 6.0 (5.0-9.0) Ur Specific Forbes 1.010 (1.000-1.035) Urine Protein Negative (Negative) mg/dL Urine Glucose (UA) Negative (Negative) mg/dL Urine Ketones Negative (Negative) mg/dL Urine Occult Blood 0.20 (Negative) mg/dL Urine Nitrate Negative (Negative) Urine Bilirubin Negative (Negative) mg/dL Urine Urobilinogen Negative mg/dL Ur Leukocyte Esterase 500 A (Negative) /uL Urine RBC 3 (0-3) /hpf Urine WBC 85 H (0-4) /hpf Ur Squamous Epith Cells 1 (0-4) /hpf Urine Bacteria None (0) /hpf Ur Culture Indicated? yes 08/15/21 Range/Units 20:58 WBC (4.5-11.0) K/mcL RBC (3.59-5.38) M/mcL Hgb (11.2-15.7) g/dL Hct (34.1-44.9) % POC Hct (36-48) MCV (80.0-100.0) fL MCH (26.0-34.0) pg MCHC (31.0-36.0) g/dL RDW (11.5-14.5) % Plt Count (140-440) K/mcL MPV (7.4-10.4) fL Seg Neutrophils % (38-78) % Band Neutrophils % (0-10) % Lymphocytes % (15-49) % Monocytes % (Manual) (1-12) % Eosinophils % (Manual) (0-7) % Platelet Estimate (Normal) RBC Morphology (Normal) VBG Lactic Acid 0.8 (0.5-2.0) mmol/L POC Sodium (133-145) POC Potassium (3.3-5.1) POC Chloride (96-108) POC Total CO2 (22-30) POC BUN (6-20) POC Creatinine (0.6-1.2) POC Glucose (70-105) POC WB Ioniz Calcium (1.16-1.32) Urine Color Urine Appearance (Clear) Urine pH (5.0-9.0) Ur Specific Forbes (1.000-1.035) Urine Protein (Negative) mg/dL Urine Glucose (UA) (Negative) mg/dL Urine Ketones (Negative) mg/dL Urine Occult Blood (Negative) mg/dL Urine Nitrate (Negative) Urine Bilirubin (Negative) mg/dL Urine Urobilinogen mg/dL Ur Leukocyte Esterase (Negative) /uL Urine RBC (0-3) /hpf Urine WBC (0-4) /hpf Ur Squamous Epith Cells (0-4) /hpf Urine Bacteria (0) /hpf Ur Culture Indicated? ED POC Tests ED POC Tests: KAYLIE - SARS Antigen Negative Radiology Data Radiology results reviewed: Yes I reviewed the patient's radiology results. Radiology results narrative: Bilateral renal ultrasound: Enlarged right kidney with hydronephrosis and at least 2 calculi. Echogenic focus in the left midpole which may represent scarring versus infarct, per outside radiology interpretation. CT abdomen and pelvis without contrast: Multiple right lower pole intrarenal stones and multiple mid right ureteral stones with moderate right hydronephrosis, per outside radiology interpretation. Discharge Plan Patient/Caregiver Discharge Instructions Pt seen by WELLHEAD PUMPER/PA only: No (Dr. Greene) Clinical Impression: Right ureteral calculus Patient Disposition: Xfer As Outpt/Obs ([facility]) Condition: Fair Discharge Date/Time: 08/16/21 00:50 Discharge Location: [facility]
[2021-08-15 21:41] LABS: Hematocrit 46.1 % (34.1-44.9); Hemoglobin 15.2 g/dL (11.2-15.7); Mean Cell Volume 93.5 fL (80.0-100.0); Mean Platelet Volume 12.2 fL (7.4-10.4); Platelet Count 195 K/mcL (140-440); RBC 4.93 M/mcL (3.59-5.38); Red Cell Distribution Width 13.7 % (11.5-14.5); WBC 13.8 K/mcL (4.5-11.0)
[2021-08-15 21:46] LABS: Appearance,Urine HAZY (Clear); Bilirubin,Urine Negative (Negative); Color,Urine YELLOW; Culture Indicated,Urine yes; Glucose,Urine (UA) Negative (Negative); Ketones,Urine Negative (Negative); Leukocyte Esterase,Urine 500 /uL (Negative); Nitrate,Urine Negative (Negative); Protein,Urine Negative (Negative); Urine RBC 3 /hpf (0-3); Urine Squamous Epithelial Cell 1 /hpf (0-4); Urine WBC 85 /hpf (0-4); Urobilinogen,Urine Negative
[2021-08-15 22:04] LABS: Band Neutrophils % 3 % (0-10); Eosinophils % (Manual) 1 % (0-7); Lymphocytes % 13 % (15-49); Monocytes % (Manual) 5 % (1-12); Platelet Estimate NORMAL (Normal); RBC Morphology NORMAL (Normal); Segmented Neutrophils % 78 % (38-78)
[2021-08-15] MEDS ORDERED: morphine 4 MG/ML VIAL IV ONE (22:30)
[2021-08-15] MEDS ORDERED: morphine 4 MG/ML VIAL IV PRN (23:26)
[2021-08-16] MEDS: ONDANSETRON 4 MG/2 ML VIAL IV PRN ×2 (00:43→07:44)
[2021-08-16] MEDS: DEXTROSE 5%-LR 1,000 ML IV SCH ×2 (01:33→16:21)
--- NOTE | 2021-08-16 04:41 | Cat Scan Report ---
CLINICAL INFORMATION: Right flank pain COMPARISON: Abdomen and pelvic CT 05/02/2019 TECHNIQUE: 0.625 mm helical slices were obtained from the mid heart through the subtrochanteric regions. Following reconstruction, 2.5 mm sagittal, coronal and axial reformatted images were processed and reviewed at bone and soft tissue windows.The exam was performed using radiation dose optimization techniques including, but not limited to, automated exposure control, adjustment of the mA and/or kV according to patient size and use of iterative reconstruction technique. FINDINGS: The lung bases show minimal scattered scarring and/or atelectasis.. No effusions. The visualized heart is grossly normal in size. Scattered calcific plaque in the coronary arteries noted. Mild lipomatous infiltration of the interatrial septum is stable. Cluster of 5-6 stones in the proximal right ureter, at the UPJ region, range up to 5 mm. They result in moderate right hydronephrosis. There also cluster of approximately eight small nonobstructing stones within the inferior calyx of the right kidney ranging up to 4 mm. There is mild edema in the right kidney with perinephric stranding. Noncontrasted left kidney is unremarkable. The noncontrasted gallbladder and bile ducts, liver, spleen, and aorta are normal in size, configuration and attenuation without focal lesion. A 14 mm calcification pancreatic head has been stable since the CT over two years prior 05/02/2019. Pancreas otherwise normal. Moderate hyperplasia of both adrenal glands is stable. There is no free air, free fluid or adenopathy. Pelvic images show normal noncontrasted urinary bladder. Uterus is surgically absent. Neither ovary is identified and are either surgically absent or atrophic. Scattered sigmoid diverticula appreciated but no evidence of diverticulitis. Inferior pericecal appendix, small bowel stomach are grossly normal. Bone windows show grade 1 L4-5 spondylolisthesis due to degenerative facet disease. There is also broad disc protrusion resulting in moderate central canal and IV foraminal narrowing. IMPRESSION: 1. 5-6 stones in the right UPJ, ranging up to 5 mm, results in moderate right hydronephrosis. Approximately eight nonobstructing stones are present within the inferior calyx of the right kidney ranged up to 4 mm. 2. 14 mm pancreatic head calcifications stable for over two years. Presumably, this is stigmata of prior focal pancreatitis. Pancreas otherwise normal. 3. Moderate bilateral adrenal hyperplasia-stable Interpreted and Authenticated by: Paul Colmenares 08/16/21
--- NOTE | 2021-08-16 05:18 | Ultrasound Report ---
CLINICAL INFORMATION: Right flank pain COMPARISON: None. FINDINGS: Right kidney is mildly enlarged-15 x 8 cm with mild right hydronephrosis. There are five six stones in the right UPJ ranging up to 6 mm. Few nonobstructing stones ranging up to 5 mm seen within the inferior calyx of the right kidney. Left kidney is normal size 11 x 6 cm with scarring in the lateral cortex. Urinary bladder volume 122 cc patient was unable to void. No focal bladder lesions. IMPRESSION: Moderate right hydronephrosis due to obstructing right UPJ stone. Small stones also seen inferior calyx right kidney Focal parenchymal scarring mid left kidney Interpreted and Authenticated by: Paul Colmenares 08/16/21
[2021-08-16] MEDS: 0.9 % SODIUM CHLORIDE 10 ML SYRINGE IV SCH ×2 (05:45→16:21)
[2021-08-16] MEDS ORDERED: cefTRIAXone 1 GM VIAL IV ONE (07:00)
--- NOTE | 2021-08-16 07:09 | Urology History & Physical ---
HPI History of Present Illness Patient information: Note initiated : 08/16/21 at 7:01 am Service Date, if different from initiated Date: [] Patient: Jumana Prieto a 61 y/o F admitted on 08/16/21 for I think I have a kidney stone. Chief Complaint: Right flank pain Chief complaint: Right flank pain History of present illness: Ms. Prieto is a 61 year old woman who complains of a 2-week history of right flank pain. She presented to the emergency department yesterday where CT abdomen and pelvis was obtained. I personally reviewed the films. The films indicate numerous stones in the right lower pole as well as numerous stones measuring up to 5 mm that appeared to be stuck in the right ureteropelvic junction there is moderate right hydronephrosis. Urinalysis shows white blood cells and leukocyte esterace without bacteria. Due to her continued pain and difficulty controlling her pain we admitted her overnight to go to the operating room today in an attempt to treat the stones. She previously underwent percutaneous nephrolithotomy many years ago but because of altered anatomy none of the stones were removed. She subsequently underwent ureteroscopy with laser lithotripsy by Dr. Squires. Review of Systems All systems: reviewed and no additional remarkable complaints except as stated Genitourinary Genitourinary: Present flank pain PFSH PFSH All Active Problems (Updated 08/15/21 @ 23:33 by Background Daemon) S/P total knee arthroplasty (Acute) Total knee replacement status (Acute) Loose total knee arthroplasty (Acute) Kidney stones (Chronic) Hypothyroidism (Chronic) Hydronephrosis (Chronic) UTI (urinary tract infection) (Chronic) Right flank pain (Chronic) Ureterolithiasis (Chronic) Intractable nausea and vomiting (Chronic) Sepsis (Chronic) Septic shock (Chronic ~2014) Leukocytosis (Chronic) Pancreatitis (Chronic) Alcohol abuse (Chronic) Hypertension (Chronic) Obesity (Chronic) PUD (peptic ulcer disease) (Chronic) Pseudogout of left knee (Chronic) Headache (Chronic) Bone spur of right foot (Chronic) Osteoarthritis (Chronic) Right ureteral calculus (Acute) Medical History (Updated 08/15/21 @ 23:33 by Background Daemon) Alcohol abuse no alcohol since 04/2013 Bone spur of right foot Headache Hydronephrosis Hypertension requiring medication management while an alcoholic Hypothyroidism Intractable nausea and vomiting Kidney stones Leukocytosis Obesity Osteoarthritis Pancreatitis alcohol related Pseudogout of left knee PUD (peptic ulcer disease) secondary to aspirin misuse Right flank pain Sepsis Septic shock (~2014) Ureterolithiasis UTI (urinary tract infection) Surgical History History of hysterectomy History of left knee surgery for septic joint History of nephrolithotomy with removal of calculi (~05/27/19) History of right knee surgery History of skin graft over knee History of ureter stent x2; 05/03/2019 Family History Other No pertinent past medical history Social History (Updated 09/09/19 @ 11:47 by Abiodun Squires MD) alcohol intake frequency: former alcohol drinker substance use type: does not use MEDS/ALLERGIES Home Medications and Allergies Home Medications Medication Instructions Recorded Confirmed Type levothyroxine 100 mcg tablet 150 mcg PO QAMAC 02/26/17 08/16/21 History Allergies Allergy/AdvReac Type Severity Reaction Status Date / Time NSAIDS (Non-Steroidal AdvReac Mild Diarrhea Verified 08/16/21 01:18 Anti-Inflamma Physical Examination Vital Signs Vital signs: Temp Pulse Resp BP Pulse Ox 97.3 F 66 18 106/80 93 08/16/21 04:48 08/16/21 04:48 08/16/21 04:48 08/16/21 04:48 08/16/21 04:48 General physical appearance General physical exam: well developed, well nourished and no distress Head Head exam IM: Present atraumatic, normal inspection and normocephalic Neck Neck exam: trachea midline Cardiovascular Cardiovascular exam IM: Present normal rate and rhythm Respiratory Respiratory exam: normal expansion, normal respiratory effort and clear to auscultation Abdomen Abdomen: Present soft and non tender Psychiatric Psychiatric: Present oriented to time, oriented to person, oriented to place and speech is normal Results Labs Result diagrams: 08/15/21 20:40 Labs: Abnormal lab results 08/15/21 08/15/21 08/15/21 Range/Units 20:28 20:39 20:40 WBC 13.8 H (4.5-11.0) K/mcL Hct 46.1 H (34.1-44.9) % MPV 12.2 H (7.4-10.4) fL Lymphocytes % 13 L (15-49) % POC Glucose 113 H (70-105) POC WB Ioniz Calcium 1.12 L (1.16-1.32) Urine Appearance Hazy A (Clear) Ur Leukocyte Esterase 500 A (Negative) /uL Urine WBC 85 H (0-4) /hpf All other labs normal. Imaging CT scan - abdomen: report reviewed and image reviewed CT scan - pelvis: report reviewed and image reviewed A/P Assessment and plan (1) Kidney stones: Assessment and plan: Jumana is a 61-year-old woman with numerous right lower pole and right proximal ureteral stones with obstruction, right hydronephrosis and pain. Her pain was difficult to control and for this reason we kept her overnight to take her to the operating room this morning. She is remained NPO. She will be given Rocephin 1 g. We discussed going to the operating room and under general anesthesia, performing cystoscopy, right retrograde pyelogram, right ureteroscopy, right holmium laser lithotripsy, right ureteral stone basketing, and right ureteral stent placement. I discussed the procedure with the patient. We discussed possible risks and side effects including, but not limited to: Bleeding, infection, damage to the urethra and to the bladder, damage to the right ureter and right kidney, postoperative urgency and frequency, postoperative hematuria, incomplete treatment of the stone, need for further treatment and/or surgery, small risks of heart attack, stroke and , and risks of anesthesia that he will discuss separately with the anesthesia provider prior to the procedure. She understands and on occasion we are unable to pass our camera to the level of the stone, in which case, we attempt to simply place a ureteral stent. She understands that at the time of the procedure we will place a right ureteral stent. I explained what this is and that it is a temporary device. This will need to be removed in the office approximately 1 week after definitive treatment of the stone. He understands the procedure and its associated risks. A signed consent form was obtained. Status: Chronic (2) Hydronephrosis: Status: Chronic (3) Right flank pain: Status: Chronic (4) Obesity: Status: Chronic (5) Ureterolithiasis: Status: Chronic Time Spent With Patient Time: Total time spent is greater than 50% in coordination of care (as documented) at patient's floor/unit and/or counseling patient:
[2021-08-16] MEDS: HYDROmorphone 0.5 MG/0.5 ML SYRINGE IV PRN ×2 (07:33→10:54)
[2021-08-16] MEDS ORDERED: IOVERSOL 20 ML VIAL IV ONE (14:11)
[2021-08-16] MEDS ORDERED: [UNRECOGNIZED DRUG - OTHER] UR ONE (14:11)
[2021-08-16] MEDS ORDERED: LIDOCAINE UR ONE (14:11)
[2021-08-16] MEDS ORDERED: GLYCOPYRROLATE 0.2 MG/ML VIAL IV ONE (14:20)
[2021-08-16] MEDS ORDERED: LIDOCAINE HCL/PF 100 MG/5 ML SYRINGE IV ONE (14:20)
[2021-08-16] MEDS ORDERED: DEXAMETHASONE 10 MG/ML VIAL ONE (14:20)
[2021-08-16] MEDS ORDERED: diphenhydrAMINE 50 MG/ML VIAL ONE (14:20)
[2021-08-16] MEDS ORDERED: ONDANSETRON 4 MG/2 ML VIAL ONE (14:20)
[2021-08-16] MEDS ORDERED: PROPOFOL 200 MG/20 ML VIAL IV ONE (14:20)
[2021-08-16] MEDS ORDERED: KETAMINE 50 MG/ML Syringe (ANEST) IV ONE (14:20)
[2021-08-16] MEDS ORDERED: SUCCINYLCHOLINE 20 MG/ML ML IV ONE (14:20)
[2021-08-16] MEDS ORDERED: METOCLOPRAMIDE 10 MG/2 ML VIAL ONE (14:20)
[2021-08-16] MEDS ORDERED: LACTATED RINGERS 250 ML IV PRN (14:43)
[2021-08-16] MEDS ORDERED: MEPERIDINE 25 MG/ML VIAL IV PRN (14:43)
[2021-08-16] MEDS ORDERED: PROMETHAZINE 25 MG/ML VIAL IV PRN (14:43)
[2021-08-16] MEDS ORDERED: fentaNYL 100 MCG/2 ML VIAL IV PRN (14:43)
[2021-08-16] MEDS ORDERED: NALOXONE HCL 0.4 MG/ML VIAL IV PRN (14:43)
[2021-08-16] MEDS ORDERED: ACETAMINOPHEN 1,000 MG/100 ML BAG IV ONE (14:43)
[2021-08-16] MEDS ORDERED: IPRATROPIUM/ALBUTEROL 3 ML AMPUL.NEB NEB PRN (14:43)
[2021-08-16] MEDS ORDERED: ONDANSETRON 4 MG/2 ML VIAL IV PRN ×2 (14:43→15:11)
[2021-08-16] MEDS ORDERED: LACTATED RINGERS 1,000 ML IV SCH (14:45)
--- NOTE | 2021-08-16 15:08 | Operative Note ---
Brief Operative Note Date of procedure: 08/16/21 Pre-op diagnosis: Numerous right lower pole and right proximal ureteral stones Post-op diagnosis: same Procedure: Cystoscopy, right retrograde pyelogram, right ureteroscopy, right holmium laser lithotripsy, and right ureteral stent placement. Grafts/Implants: Yes (6 Colombian by 24 cm right ureteral stent with no string) Anesthesia: GETA Findings: Numerous soft, white, right lower pole and proximal right ureteral stones. Complications: none Surgeon: Heladio Glaser Estimated blood loss (cc): 5 Specimens Removed/Pathology: none sent Condition: stable Disposition: PACU Operative Note Operative Note: After obtaining informed consent from the patient, she was brought to the operating room was placed supine on the operating table. General anesthesia was provided. She was repositioned in a dorsolithotomy position and was prepped and draped in usual sterile fashion. Attention was directed to the urethral meatus where a 21 Colombian cystoscope was passed per urethra and into the bladder. The bladder was inspected and was seen to be free of tumors and stones. The urine was somewhat cloudy. The right ureteral orifice was cannulated using a 5 Colombian open-ended ureteral catheter and a right retrograde pyelogram was performed that showed some obstruction of the proximal right ureter and moderate hydronephrosis. The opening ureteral catheter was removed and a 0.38 Colombian Sensor wire was passed through the right ureteral orifice and under fluoroscopic guidance into the right upper pole. The bladder was drained and the cystoscope was removed. A dual-lumen catheter was passed over the sensor wire and into the right distal ureter. A second 0.38 Colombian extra-stiff wire was passed through the second port of the dual-lumen catheter and under fluoroscopic guidance into the right upper pole. The dual-lumen catheter was removed. The sensor wire was affixed to the drapes as a safety wire and the extra-stiff wire was used as a working wire. A 12-14 Colombian 35 cm ureteral access sheath was then passed over the extra-stiff wire and under fluoroscopic guidance was easily passed to the proximal ureter just distal to the area of stones. The obturator was removed and the extra-stiff wire was also removed. The flexible, disposable ureteroscope was then passed through the ureteral access sheath and under direct vision to the proximal ureter where a mild stricture was identified which was more than wide enough to allow for passage of the scope. The stones had blown into the renal pelvis. Numerous stones up to 5 to 6 mm were identified in the right renal pelvis. Additional stones were identified in the right lower pole. Using a 150 m laser fiber at dusting settings the stones were fragmented into dust and pieces no more than 1 to 2 mm in size. Visualization within the kidney was somewhat difficult as the urine had a cloudiness due to bruit debris in the collecting system. I believe that identified all the stones and that all the stones were completely fragmented. I then performed a retrograde pyelogram through the ureteroscope. I removed the ureteroscope all inspecting the entire length of the ureter from the uteropelvic junction to the uterovesical junction. Again the small area of stricture was seen in the proximal ureter there was no other area of damage to the ureter and no further stones within the right ureter. The ureteroscope and ureteral access sheath were then removed. The remaining wire was backloaded through the 21 Colombian cystoscope which was passed into the bladder. A 6 Colombian by 24 cm right ureteral stent with no string was then passed over the wire and under fluoroscopic guidance into the right renal pelvis. The wire was removed leaving a good curl in the right renal pelvis and a good curl within the bladder. The bladder was irrigated and drained. The cystoscope was removed. Lidocaine jelly was placed in the urethra and the bl adder. The patient was returned to the supine position. She was awakened and returned to the recovery in stable condition.
--- NOTE | 2021-08-16 15:09 | Discharge Plan ---
Discharge Plan Patient/Caregiver Discharge Instructions Activity: increase activity as tolerated and resume usual activities as tolerated Diet: Regular Diet Instructions: Cystoscopy (GEN), Ureteral Stent Placement (GEN), Ureteroscopy (GEN) Prescriptions: New hydrocodone-acetaminophen 5-325 mg tablet 1 tab PO Q6H PRN (Reason: pain) Qty: 8 0RF sulfamethoxazole-trimethoprim [Bactrim DS] 800-160 mg tablet 1 tab PO BID Qty: 14 0RF ondansetron 4 mg tablet,disintegrating 4 mg PO Q8H PRN (Reason: nausea and vomiting) Qty: 5 0RF Continued levothyroxine 100 MCG tablet 150 mcg PO QAMAC 0RF Follow Up Plan Follow up with: Heladio Glaser MD [Physician] - Patient Disposition: Home, Self-Care Prognosis: Fair Discharge Orders: Discharge Order (Routine); Ordered 08/16/21 Ordered By: Heladio Glaser
[2021-08-16] MEDS ORDERED: HYDROcodone/APAP 5/325MG TABLET PO PRN (15:11)
[2021-08-16] MEDS ORDERED: HYDROmorphone 1 MG/ML SYRINGE IV PRN (15:11)
--- NOTE | 2021-08-16 19:54 | EKG ---
[facility] Test Date: 2021-08-16 Pat Name: Jumana Prieto Department: ICU Room: 118 Gender: Female [employer]: : 1960 Requested By: Heladio Glaser Order Number: [id number] Reading MD: Kev Perrin Measurements Intervals [place] Rate: 66 P: 40 CO: 167 QRS: -1 QRSD: 96 T: 17 QT: 401 QTc: 421 Interpretive Statements Sinus rhythm Electronically Signed On 08-16-2021 19:54:05 PDT by Kev Perrin /store/[email or web address]/[id number]
[2021-08-16] MEDS ORDERED: 0.9 % SODIUM CHLORIDE 10 ML SYRINGE IV SCH (22:00)
--- NOTE | 2021-08-17 04:06 | XRay Report ---
CLINICAL INFORMATION: Right UPJ stones were causing hydronephrosis. COMPARISON: None. FINDINGS: Intraoperative retrograde ureterogram shows mild right hydronephrosis. It is presumed the stones were removed. A right ureteral stent was successfully placed. Total fluoroscopy time 0.9 minutes. IMPRESSION: Successful placement of right ureteral stent. Total fluoroscopy time 0.9 minutes Interpreted and Authenticated by: Paul Colmenares 08/17/21
== END 2021-08-16 17:45 | disposition home or self-care (01) ==
LOC: ED 19:48 → ICU 19:48 → MEDSUR 08-16 15:57
PROVIDERS: ADMIT Urology; ATTEND Urology